=== PATIENT | female | born 1965 | race Caucasian/White ===

== ENCOUNTER 2017-03-13 06:41 | Inpatient (IN) | payer BC ==
[2017-03-13] MEDS ORDERED: cefOXitin 2 GM Vial ONE (07:02)
[2017-03-13] MEDS ORDERED: Gabapentin 300 MG Cap PO ONE (07:15)
[2017-03-13] MEDS ORDERED: Celecoxib 200 MG Cap PO ONE (07:15)
[2017-03-13] MEDS ORDERED: cefOXitin 2 GM in Premix Bag 1 BAG IV ONE (07:15)
[2017-03-13] MEDS ORDERED: Scopolamine 1.5 MG Transdermal Patch TOP SCH (07:15)
[2017-03-13] MEDS ORDERED: Acetaminophen 500 MG Tab PO ONE (07:15)
[2017-03-13] MEDS: Dextrose 5%-Lactated Ringers 1,000 ML IV SCH ×3 (07:48→22:25)
[2017-03-13] MEDS ORDERED: Succinylcholine 200 MG/10 ML MDV ONE (08:00)
[2017-03-13] MEDS ORDERED: Dexamethasone 4 MG/ML SDV ONE (08:00)
[2017-03-13] MEDS ORDERED: Ondansetron 4 MG/2 ML SDV ONE (08:00)
[2017-03-13] MEDS ORDERED: Neostigmine Methylsulfate 1 MG/ML 5 ML Syringe ONE (08:00)
[2017-03-13] MEDS ORDERED: Glycopyrrolate 0.2 MG/ML 5 ML MDV ONE (08:00)
[2017-03-13] MEDS ORDERED: Midazolam 1 MG/ML 2 ML SDV ONE (08:00)
[2017-03-13] MEDS ORDERED: Rocuronium 50 MG/5 ML Vial ONE (08:00)
[2017-03-13] MEDS ORDERED: Propofol 200 MG/20 ML SDV ONE (08:00)
[2017-03-13] MEDS ORDERED: Lidocaine 2% 100 MG/5 ML Syringe IVPUSH ONE (09:00)
[2017-03-13] MEDS ORDERED: Ropivacaine 53 ML, Dexamethasone 8 MG, EPINEPHrine 0.4 MG, Sodium Chloride 0.9% 24.6 ML NERVRT SCH ×4 (09:00)
[2017-03-13] MEDS ORDERED: Ketamine 500 MG/5 ML MDV IV SCH (09:00)
[2017-03-13] MEDS ORDERED: Lactated Ringers 1,000 ML ONE ×2 (10:12→11:38)
[2017-03-13] MEDS ORDERED: Naloxone 0.4 MG/ML SDV ONE (11:09)
[2017-03-13] MEDS: Lidocaine 0.4%/D5W 2 GM/500 ML BAG IV SCH (12:26)
[2017-03-13] MEDS ORDERED: hydrOXYzine HCl 100 MG/2 ML SDV IM PRN (13:00)
[2017-03-13] MEDS ORDERED: Labetalol 20 MG/4 ML Syringe IVPUSH PRN (13:00)
[2017-03-13] MEDS ORDERED: diphenhydrAMINE 50 MG/ML SDV IVPUSH PRN (13:00)
[2017-03-13] MEDS ORDERED: Metoclopramide 10 MG/2 ML SDV IVPUSH PRN (13:00)
[2017-03-13] MEDS: Gabapentin 250 MG/5 ML Solution ML 470 ML Bottle PO SCH ×2 (13:56→20:52)
[2017-03-13] MEDS ORDERED: Pantoprazole 40 MG Vial IVPUSH SCH (14:00)
[2017-03-13] MEDS: Acetaminophen 160 MG Tab,Disintegrating PO SCH ×2 (15:30→21:02)
[2017-03-13] MEDS: MVI, Adult with Vitamin K 10 ML, Thiamine 200 MG, Chromium/Copper/Mang/Selen/Zn 1 ML in... IV SCH ×4 (15:30)
[2017-03-13] MEDS: cefOXitin 2 GM in Sodium Chloride 0.9% 50 ML IV SCH ×3 (15:30→21:02)
[2017-03-13] MEDS: Ondansetron 4 MG/2 ML SDV IVPUSH PRN (16:25)
[2017-03-13] MEDS: Heparin Sodium 5,000 Units/ML Vial SUBCUT SCH (17:50)
[2017-03-14] MEDS: Lidocaine 0.4%/D5W 2 GM/500 ML BAG IV SCH (02:28)
[2017-03-14] MEDS ORDERED: Iohexol 647 MG/ML 50 ML SDV PO PRN (02:33)
[2017-03-14] MEDS: Ondansetron 4 MG/2 ML SDV IVPUSH PRN (02:33)
[2017-03-14] MEDS: Dextrose 5%-Lactated Ringers 1,000 ML IV SCH (03:47)
[2017-03-14] MEDS: cefOXitin 2 GM in Sodium Chloride 0.9% 50 ML IV SCH (03:47)
[2017-03-14] MEDS: Acetaminophen Soln 160 MG/5 ML UD Cup PO SCH ×2 (03:48→10:43)
[2017-03-14] MEDS: Heparin Sodium 5,000 Units/ML Vial SUBCUT SCH ×2 (05:54→17:49)
[2017-03-14] MEDS ORDERED: Ondansetron 4 MG Tab.DIS PO PRN (08:09)
[2017-03-14] MEDS: Celecoxib 200 MG Cap PO SCH (08:10)
[2017-03-14] MEDS: Gabapentin 250 MG/5 ML Solution ML 470 ML Bottle PO SCH ×4 (08:10→22:25)
[2017-03-14] MEDS: SCOPOLAMINE PATCH CHECK TOP SCH (08:14)
[2017-03-14] MEDS: Lisinopril 5 MG Tab PO SCH (09:12)
[2017-03-14] MEDS ORDERED: Acetaminophen Soln 650 MG/20.3 ML UD Cup PO SCH (16:00)
[2017-03-14] MEDS ORDERED: Pantoprazole 40 MG Delayed-Release Granules 1 Packet PO SCH (16:00)
[2017-03-14] MEDS: MVI, Adult with Vitamin K 10 ML, Thiamine 200 MG, Chromium/Copper/Mang/Selen/Zn 1 ML in... IV SCH ×4 (17:49)
[2017-03-14] MEDS: Acetaminophen 160 MG Tab,Disintegrating PO SCH (22:22)
[2017-03-15] MEDS: Acetaminophen 160 MG Tab,Disintegrating PO SCH ×2 (04:36→10:19)
[2017-03-15] MEDS: Heparin Sodium 5,000 Units/ML Vial SUBCUT SCH (07:18)
[2017-03-15] MEDS: Celecoxib 200 MG Cap PO SCH (07:24)
[2017-03-15] MEDS ORDERED: Cyanocobalamin (Vitamin B12) 1,000 MCG/ML SDV IM ONE (09:00)
[2017-03-15] MEDS: SCOPOLAMINE PATCH CHECK TOP SCH (10:17)
[2017-03-15] MEDS: Lisinopril 5 MG Tab PO SCH (10:18)
[2017-03-15] MEDS: Gabapentin 250 MG/5 ML Solution ML 470 ML Bottle PO SCH (10:20)
[2017-03-15] MEDS ORDERED: Magnesium Hydroxide 400 MG/5 ML Susp 30 ML Cup PO ONE (10:40)
--- NOTE | 2017-03-17 08:48 | CR ---
UGI wo KUB HISTORY: eval R -Y GBP FINDINGS: After administration of oral contrast, upright views were obtained. Post operative changes gastric bypass. Surgical drains in place. No evidence for leak. Contrast passes freely into proximal small bowel loops. IMPRESSION: No evidence for leak or obstruction.
--- NOTE | 2017-03-17 10:04 | PN ---
DATE OF SERVICE: 03/14/2017 The patient is postop day 1 from a sleeve gastrectomy, no major problems were noted overnight. X-ray was done and oral intake has been fair. We will move her up to a step-2 diet today and she is tolerating the oral pain medication satisfactorily. We will restart her lisinopril, for now. Mazin Benites MD /[id number]
--- NOTE | 2017-03-17 11:55 | DISCH ---
FINAL DIAGNOSES: 1. Morbid obesity. 2. Marked hepatomegaly. 3. Paraesophageal diaphragmatic hernia. 4. Hypertension. OPERATIVE PROCEDURES: Done on 03/13/17, laparoscopic sleeve gastrectomy with liver biopsy and repair of paraesophageal diaphragmatic hernia. SUMMARY: This is a 51-year-old female presenting with longstanding morbid obesity and increasingly significant comorbidities. After preoperative evaluation and discussion, she wished to proceed with a sleeve gastrectomy, which was done on the date of admission, along with liver biopsy and repair of a paraesophageal diaphragmatic hernia. Postoperatively, she has had no significant problems. Oral intake is remaining satisfactory, and she will be sent home with a step-2 diet, i.e. full liquid diet for 1 month. As far as medications, she will continue with Celebrex daily for another 5 days and then p.r.n., that being 200 mg dose, and then chewable Tylenol p.r.n. We will continue the lisinopril 5 mg a day, and she will be instructed to hold on her vitamins and other supplements until the first appointment that will be on 03/23/17 with Mirella Harley at [facility].
--- NOTE | 2017-03-24 08:23 | OR ---
DATE OF PROCEDURE: 03/13/2017 PREOPERATIVE DIAGNOSIS: Morbid obesity. POSTOPERATIVE DIAGNOSES: 1. Morbid obesity. 2. Marked hepatomegaly. 3. Paraesophageal diaphragmatic hernia. OPERATIVE PROCEDURE: 1. Laparoscopic sleeve gastrectomy (67228). 2. Wojciech-Cut needle liver biopsy (51996). 3. Repair of paraesophageal diaphragmatic hernia (50019). ANESTHESIA: General. PATIENT PLACEMENT COORDINATOR: Mirella Harley PA-C. INDICATIONS FOR PROCEDURE: This is a 51-year-old female presenting with longstanding morbid obesity and increasingly significant comorbidities. After preoperative evaluation and discussion, she wished to proceed with a sleeve gastrectomy. Potential risks of the procedure including bleeding, infection, leaks from the sleeve staple line, as well as possibility of cardiopulmonary, septic, or hemorrhagic complications leading to were discussed, and the patient wishes to proceed. DETAILS OF PROCEDURE: The patient was taken to the operating room, and after general endotracheal anesthesia was induced, she was placed in a lithotomy position. Initially, an orogastric tube was placed to decompress the abdomen, which was subsequently removed and the abdomen prepped and draped. At 15 cm inferior, 5 cm left of xiphoid process, a transverse incision was made and the peritoneal cavity entered under direct vision with an Optiview trocar and inflated to 15 mmHg pressure with CO2. Laparoscope was then reinserted. No underlying trocar insertion site injuries were seen. Following this, bilateral subcostal transversus abdominis plane blocks were placed using the standard solution with the needle being directly visualized in the correct plane. Following this, five additional trocars were placed across the upper mid abdomen, and general exploration was undertaken. The patient was noted to have marked hepatomegaly with liver volume being roughly 2 to 3 times normal and liver grossly fatty infiltrated. Wojciech-Cut needle biopsies were obtained from the left lobe of the liver. Minimal bleeding from the biopsy site was controlled with electrocautery. At this point, the liver was retracted anteriorly. The patient was noted to have a moderate- sized paraesophageal hernia. This contained some perigastric fat and fundus of the stomach, as well as a prolapse of a portion of the posterior aspect of the stomach in a plane alongside the course of the esophagus. The peritoneum overlying the esophagogastric junction was initially incised, and then the peritoneum along the right and left crura as it joined the esophagus was similarly incised. This allowed dissection of the esophagus away from the crura on each side, and the retroesophageal window was then established. The esophagus was dissected free from the surrounding soft tissues to the extent that there was a 4 to 5 cm intraabdominal esophageal length. Posterior crural repair was then accomplished with 0 Ethibond sutures, reinforced with PTFE pledgets. At this point, attention was then taken to completion of the sleeve gastrectomy. Along the mid greater curvature of the stomach, the omentum was divided away from the stomach using Harmonic scalpel. This continued upward to include the highest and posterior short gastric vessels, and then there was colonization of the left fuad somewhat below the crural repair. The dissection then continued distally to a point roughly 3 cm proximal to the pylorus, which would be the starting point for the gastrectomy staple line. The anterior aspect of the gastric antrum and then extending leftward to the left of the incisura angularis was marked out with electrocautery, and the first three firings of the sleeve staple line were with the standard black loads, this beginning 2 cm proximal to the pylorus. Care was taken to avoid over-tightening of the area of the incisura angularis to avoid obstruction at that level. Following the first three firings then, a 32-Finnish suction tube was placed per Anesthesia orally and then across the stomach and from there into the antrum. This was situated along the lesser curvature and then put on suction. Remainder of the sleeve gastrectomy was accomplished with a combination of black and purple reinforced staple lines. Upon completion of the sleeve gastrectomy, all staple lines were inspected and found to be intact. At this point, the staple line was reinforced with fibrin sealant and the omentum tacked up along the edges of the staple line with 3-0 Vicryl seromuscular stitches through the omentum. Leak test was accomplished with injection of air into the stomach while the pylorus was compressed and the sleeve gastrectomy staple line being submerged with antibiotic-containing saline solution. No leaks were identified. At that point, the gastrointestinal catheter withdrawn. At this point, no further problems were noted. The stomach was retrieved through the left subcostal trocar site, and through that, a 10-Finnish Fred-Palumbo drain was placed alongside the proximal end of the sleeve staple line and to the area of the splenic fossa. With no further problems noted, trocars were removed and the peritoneal cavity deflated. The incision was closed with 4-0 Vicryl skin stitch and drain affixed with 4-0 Vicryl stitch as well. Physician captain assistant, Mirella Harley, played an essential role in assisting in this case, helping to position the patient, retract structures as needed, as well as suturing and cutting sutures when indicated. Her presence improved patient safety and decreased operative time. Mazin Benites MD /[id number]
== END 2017-03-15 10:50 | disposition home or self-care (01) | DRG 403 ==
LOC: JP.SDS 06:41 → JP.2SS 07:30 → EDSTATUS 07:30 → JP.2SS 12:15 → UNDOADMIN 12:15 → UNDODISIN 03-15 10:50
PROVIDERS: ADMIT Surgery; ATTEND Surgery
PROC: 0DB64Z3 Excision of Stomach, Percutaneous Endoscopic Approach, Vertical (ICD-10-PCS; principal; 2017-03-13)
PROC: 0BQT4ZZ Repair Diaphragm, Percutaneous Endoscopic Approach (ICD-10-PCS; 2017-03-13)
PROC: 0FB24ZX Excision of Left Lobe Liver, Percutaneous Endoscopic Approach, Diagnostic (ICD-10-PCS; 2017-03-13)
PROC: 3E0T3BZ Introduction of Anesthetic Agent into Peripheral Nerves and Plexi, Percutaneous Approach (ICD-10-PCS; 2017-03-13)
DX: E66.01 Morbid (severe) obesity due to excess calories (principal); Z68.41 Body mass index [BMI] 40.0-44.9, adult; R16.0 Hepatomegaly, not elsewhere classified; K44.9 Diaphragmatic hernia without obstruction or gangrene; I10 Essential (primary) hypertension
CPT/HCPCS: 36415; 74240; 74240-26; 80053; 82962; 83735; 84100; 85027; 86850; 86900; 86901; 88305; 88307; 88313; A9270-GY; C9113; J0171; J0330; J0694; J1100; J1644; J2001; J2250; J2310; J2405; J2704; J2710; J2765; J2795; J3010; J3411; J3420; J7030; J7042; J7050; J7120; Q9967